=== PATIENT | female | born 1955 | race American Indian/Alaskan Native ===

== ENCOUNTER 2018-01-26 22:26 | Emergency (ER) | payer BC, OTHER ==
[2018-01-26 23:10] VITALS: BP 178/81
[2018-01-27] MEDS ORDERED: Cyclobenzaprine 10 MG Tab PO ONE (00:35)
--- NOTE | 2018-01-27 00:38 | EDM.PDOC ---
ED HPI GENERAL MEDICAL PROBLEM - General Chief Complaint: Lower Extremity Injury/Pain Stated Complaint: HIP PAIN [phone] Time Seen by Provider: 01/27/18 00:35 Source of Information: Reports: Patient History Limitations: Reports: No Limitations - History of Present Illness INITIAL COMMENTS - FREE TEXT/NARRATIVE: hurt left hip 2 weeks ago and still hurts to walk, yesterday morning hardly able to stand up. Left Hip Pain Score (Numeric/FACES): 8 - Related Data Allergies Allergy/AdvReac Type Severity Reaction Status Date / Time No Known Allergies Allergy Verified 10/08/13 19:52 Home Meds: Home Meds . [No Known Home Meds] 10/08/13 [History] Past Medical History - Infectious Disease History Infectious Disease History: Reports: TB - Past Surgical History HEENT Surgical History: Reports: Other (See Below) Other HEENT Surgeries/Procedures: right ear surgery GI Surgical History: Reports: Appendectomy Social & Family History - Family History Family Medical History: Noncontributory - Tobacco Use Smoking Status *Q: Current Every Day Smoker Years of Tobacco use: 20 Packs/Tins Daily: 1 - Recreational Drug Use Recreational Drug Use: No Review of Systems - Review of Systems Review Of Systems: ROS reveals no pertinent complaints other than HPI. ED EXAM, GENERAL - Physical Exam Exam: See Below Exam Limited By: No Limitations General Appearance: Alert, WD/WN, Mild Distress, Other (discomfort) Ears: Hearing Grossly Normal Throat/Mouth: Normal Voice, No Airway Compromise Head: Atraumatic Neck: Non-Tender, Full Range of Motion Respiratory/Chest: No Respiratory Distress Cardiovascular: Regular Rate, Rhythm GI/Abdominal: Soft, Non-Tender Extremities: Other (left hip tender R/P, gait limited to pain.) Neurological: Alert, Oriented, Normal Cognition, No Motor/Sensory Deficits Psychiatric: Tearful Skin Exam: Warm, Dry, Normal Color Lymphatic: No Adenopathy Course - Vital Signs Last Recorded V/S: Last Vital Signs Temp 36.7 C 01/26/18 23:01 Pulse 83 01/26/18 23:01 Resp 18 01/26/18 23:01 BP 178/81 H 01/26/18 23:01 Pulse Ox 98 01/26/18 23:01 - Orders/Labs/Meds Meds: Medications Discontinued Medications Generic Name Dose Route Start Last Admin Trade Name Freq PRN Reason Stop Dose Admin Cyclobenzaprine HCl 10 mg 01/27/18 00:35 01/27/18 00:47 Flexeril PO 01/27/18 00:36 10 mg ONETIME ONE Administration - Re-Assessments/Exams Free Text/Narrative Re-Assessment/Exam: 01/27/18 01:11 results discussed with pt. Departure - Departure Time of Disposition: 01:11 Disposition: Home, Self-Care 01 Condition: Good Clinical Impression: Contusion of hip, left Qualifiers: Encounter type: initial encounter Qualified Code(s): S70.02XA - Contusion of left hip, initial encounter - Discharge Information Instructions: Contusion, [id number] Forms: ED Department Discharge Additional Instructions: 1) avoid excessive activity next 48 hours 2) follow up at clinic rx given; flexeril 10mg bid prn x 6
== END 2018-01-27 01:16 | disposition home or self-care (01) ==
LOC: DL.ED 22:26
DX: S70.02XA Contusion of left hip, initial encounter (principal); F17.210 Nicotine dependence, cigarettes, uncomplicated; X58.XXXA Exposure to other specified factors, initial encounter
CPT/HCPCS: 73502; 99283; A9270

== ENCOUNTER 2019-07-18 23:54 | Emergency (ER) | payer SELFPAY ==
[2019-07-18] MEDS ORDERED: Albuterol 6.7 GM Inhaler INH ONE (23:55)
--- NOTE | 2019-07-19 00:03 | EDM.PDOC ---
ED HPI GENERAL MEDICAL PROBLEM - General Chief Complaint: Respiratory Problem Stated Complaint: HARD TIME BREATHING Time Seen by Provider: 07/19/19 00:02 Source of Information: Reports: Patient History Limitations: Reports: No Limitations - History of Present Illness INITIAL COMMENTS - FREE TEXT/NARRATIVE: 3 days h/o cough not betting better. Chest Pain Score (Numeric/FACES): 4 - Related Data Allergies Allergy/AdvReac Type Severity Reaction Status Date / Time No Known Allergies Allergy Verified 07/19/19 00:05 Home Meds: Home Meds . [No Known Home Meds] 10/08/13 [History] Past Medical History - Infectious Disease History Infectious Disease History: Reports: TB - Past Surgical History HEENT Surgical History: Reports: Other (See Below) Other HEENT Surgeries/Procedures: right ear surgery GI Surgical History: Reports: Appendectomy Social & Family History - Family History Family Medical History: Noncontributory ED ROS GENERAL - Review of Systems Review Of Systems: Comprehensive ROS is negative, except as noted in HPI. ED EXAM, GENERAL - Physical Exam Exam: See Below Exam Limited By: No Limitations General Appearance: Alert, WD/WN, Mild Distress, Other (episodic cough) Ears: Hearing Grossly Normal Throat/Mouth: Normal Voice, No Airway Compromise Head: Atraumatic Neck: Non-Tender, Full Range of Motion Respiratory/Chest: No Accessory Muscle Use, Rhonchi, Wheezing Cardiovascular: Regular Rate, Rhythm GI/Abdominal: Soft, Non-Tender Neurological: Alert, Oriented, Normal Cognition, Normal Gait, No Motor/Sensory Deficits Psychiatric: Flat Affect Skin Exam: Warm, Dry, Normal Color Lymphatic: No Adenopathy Course - Vital Signs Last Recorded V/S: Last Vital Signs Temp 36.8 C 07/18/19 23:59 Pulse 79 07/18/19 23:59 Resp 20 07/18/19 23:59 BP 141/57 H 07/18/19 23:59 Pulse Ox 100 07/18/19 23:59 - Orders/Labs/Meds Orders: Active Orders 24 hr Category Date Time Status RT Aerosol Therapy [RC] ASDIRECTED Care 07/19/19 00:02 Active Sodium Chloride 0.9% [Normal Saline] 1,000 ml Med 07/19/19 00:45 Active IV ASDIRECTED cefTRIAXone [Rocephin] 1,000 mg Med 07/19/19 00:56 Active Sodium Chloride 0.9% [Normal Saline] 100 ml IV ONETIME Medication Orders Sodium Chloride (Normal Saline) 1,000 mls @ 500 mls/hr IV ASDIRECTED JUAN M Last Admin: 07/19/19 00:37 Dose: 500 mls/hr Ceftriaxone Sodium 1,000 mg/ (Sodium Chloride) 100 mls @ 200 mls/hr IV ONETIME ONE Stop: 07/19/19 01:25 Last Admin: 07/19/19 01:07 Dose: 200 mls/hr Labs: Laboratory Tests 07/19/19 07/19/19 07/19/19 Range/Units 00:36 00:36 00:36 WBC 10.8 H (5.0-10.0) 10^3/uL RBC 4.39 (4.2-5.4) 10^6/uL Hgb 13.4 (12.0-16.0) g/dL Hct 40.5 (37.0-47.0) % MCV 92.3 (80-100) fL MCH 30.5 (27.0-34.0) pg MCHC 33.1 (33.0-35.0) g/dL Plt Count 273 (150-450) 10^3/uL Neut % (Auto) 45.5 (42.2-75.2) % Lymph % (Auto) 39.4 (20.5-50.1) % [place] % (Auto) 11.1 H (2-8) % Eos % (Auto) 3.7 H (1.0-3.0) % Baso % (Auto) 0.3 (0.0-1.0) % Sodium 140 (135-145) mmol/L Potassium 3.9 (3.6-5.0) mmol/L Chloride 109 (101-111) mmol/L Carbon Dioxide 23.0 (21.0-31.0) mmol/L Anion Gap 11.9 BUN 15 (7-18) mg/dL Creatinine 0.6 (0.6-1.3) mg/dL Est Cr Clr Drug Dosing 86.34 mL/min Estimated GFR (MDRD) > 60 BUN/Creatinine Ratio 25.00 Glucose 139 H (74-105) mg/dL Lactic Acid 1.8 (0.5-2.2) mmol/L Calcium 8.5 (8.4-10.2) mg/dl Total Bilirubin 0.6 (0.2-1.0) mg/dL AST 18 (10-42) IU/L ALT 18 (10-60) IU/L Alkaline Phosphatase 102 (42-121) IU/L Total Protein 7.2 (6.7-8.2) g/dl Albumin 3.7 (3.2-5.5) g/dl Globulin 3.5 Albumin/Globulin Ratio 1.06 Meds: Medications Generic Name Dose Route Start Last Admin Trade Name Freq PRN Reason Stop Dose Admin Sodium Chloride 1,000 mls @ 500 mls/hr 07/19/19 00:45 07/19/19 00:37 Normal Saline IV 500 mls/hr ASDIRECTED JUAN M Administration Ceftriaxone Sodium 1,000 mg/ 100 mls @ 200 mls/hr 07/19/19 00:56 07/19/19 01: 07 Sodium Chloride IV 07/19/19 01:25 200 mls/hr ONETIME ONE Administration Discontinued Medications Generic Name Dose Route Start Last Admin Trade Name Freq PRN Reason Stop Dose Admin Albuterol/Ipratropium 3 ml 07/19/19 00:01 07/19/19 00:13 Duoneb 3.0-0.5 Mg/3 Ml NEB 07/19/19 00:02 3 ml ONETIME ONE Administration Methylprednisolone Sodium Succinate 125 mg 07/19/19 00:01 07/19/19 00:13 Solu-Medrol IVPUSH 07/19/19 00:02 125 mg ONETIME ONE Administration Promethazine HCl/Codeine 5 ml 07/19/19 00:55 07/19/19 01:07 Phenergan With Codeine PO 07/19/19 00:56 5 ml ONETIME ONE Administration - Re-Assessments/Exams Free Text/Narrative Re-Assessment/Exam: 07/19/19 01:14 results discussed with pt. Departure - Departure Time of Disposition: 01:15 Disposition: Home, Self-Care 01 Condition: Good Clinical Impression: Bronchospasm with bronchitis, acute COPD (chronic obstructive pulmonary disease) Qualifiers: COPD type: COPD with acute exacerbation Qualified Code(s): J44.1 - Chronic obstructive pulmonary disease with (acute) exacerbation - Discharge Information Instructions: Acute Bronchitis, Adult, [id number] Forms: ED Department Discharge Additional Instructions: 1) don't sleep flat at night 2) use humidifier at night 3) see clinic Sunday for neb machine rx given; medrol dospak z-[place] phenergan codeine syrup qid prn x 4 oz rx togo; albuterol inhaler tid-qid prn Sepsis Event Note - Focused Exam Vital Signs: Vital Signs Temp Pulse Resp BP Pulse Ox 07/18/19 23:59 36.8 C 79 20 141/57 H 100 Date Exam was Performed: 07/19/19 Time Exam was Performed: 01:14 - My Orders Last 24 Hours: My Active Orders 07/19/19 00:02 RT Aerosol Therapy [RC] ASDIRECTED 07/19/19 00:45 Sodium Chloride 0.9% [Normal Saline] 1,000 ml IV ASDIRECTED 07/19/19 00:56 cefTRIAXone [Rocephin] 1,000 mg Sodium Chloride 0.9% [Normal Saline] 100 ml IV ONETIME - Assessment/Plan Last 24 Hours: My Active Orders 07/19/19 00:02 RT Aerosol Therapy [RC] ASDIRECTED 07/19/19 00:45 Sodium Chloride 0.9% [Normal Saline] 1,000 ml IV ASDIRECTED 07/19/19 00:56 cefTRIAXone [Rocephin] 1,000 mg Sodium Chloride 0.9% [Normal Saline] 100 ml IV ONETIME
[2019-07-19 00:04] VITALS: BP 141/57; PULSE 79
[2019-07-19] MEDS: methylPREDNISolone Sodium Succinate 125 MG/2 ML SDV IVPUSH ONE (00:13)
[2019-07-19] MEDS: Albuterol/Ipratropium 3.0-0.5 MG/3 ML Neb Soln NEB ONE (00:13)
[2019-07-19] MEDS: Sodium Chloride 0.9% 1,000 ML IV SCH (00:37)
[2019-07-19 01:04] LABS: ANION GAP 11.9; CHLORIDE,CL 109 mmol/L (101-111); SODIUM,NA 140 mmol/L (135-145)
[2019-07-19] MEDS: Codeine/Promethazine 10-6.25 MG/5 ML Syrup 5 ML UD Cup PO ONE (01:07)
[2019-07-19] MEDS: Albuterol 6.7 GM Inhaler INH ONE (01:20)
== END 2019-07-19 01:40 | disposition home or self-care (01) ==
LOC: DL.ED 23:54
DX: J20.9 Acute bronchitis, unspecified (principal); J44.0 Chronic obstructive pulmonary disease with (acute) lower respiratory infection; J44.1 Chronic obstructive pulmonary disease with (acute) exacerbation
CPT/HCPCS: 36415; 71045; 80053; 83605; 85025; 96365; 96375; 99285; A9270; J0696; J2930; J7030; J7050; J7620-GY

== ENCOUNTER 2025-02-15 01:43 | Emergency (ER) | payer MEDICARE, OTHER ==
[2025-02-15 02:00] VITALS: BP 161/59; PULSE 95
[2025-02-15] MEDS: Ketorolac 30 MG/ML SDV IM ONE (03:35)
== END 2025-02-15 03:55 | disposition home or self-care (01) ==
LOC: DL.ED 01:43
DX: S80.01XA Contusion of right knee, initial encounter (principal); F17.210 Nicotine dependence, cigarettes, uncomplicated; Z90.49 Acquired absence of other specified parts of digestive tract; W22.8XXA Striking against or struck by other objects, initial encounter
CPT/HCPCS: 73560; 96372; 99283; J1885

== ENCOUNTER 2025-05-09 13:20 | Emergency (ER) | payer MEDICARE, OTHER ==
[2025-05-09 14:08] VITALS: BP 130/67; PULSE 76
[2025-05-09] MEDS: Take Home: predniSONE 20 MG, 4 Tab Pack PO ONE (14:50)
[2025-05-09] MEDS: Take Home: Doxycycline 100 MG Cap, 4 Cap Pack PO ONE (14:50)
== END 2025-05-09 14:55 | disposition home or self-care (01) ==
LOC: DL.ED 13:20
DX: J44.1 Chronic obstructive pulmonary disease with (acute) exacerbation (principal)
CPT/HCPCS: 71045; 87428; 99284; A9270; J7512